=== PATIENT | female | born 1970 | race Caucasian/White ===

== ENCOUNTER 2017-01-24 06:16 | Day surgery (SDC) | payer OTHER ==
[~2017-01-24 06:16] MED LIST: ACETAMINOPHEN 325 MG TABLET PO PRN; DEXAMETHASONE SOD PHOSPHATE 10 MG/ML VIAL IV PRN; MORPHINE SULFATE 10 MG/ML SYRG IV PRN; MORPHINE SULFATE 2 MG/ML DISP.SYRIN IV PRN; MORPHINE SULFATE 4 MG/ML SYRG IV PRN; ONDANSETRON HCL/PF 2 MG/ML VIAL IV PRN; OXYMETAZOLINE HCL 150 SPRAY BTL NS PRN; RINGER'S SOLUTION,LACTATED 1,000 ML IV PRN; ceFAZolin SODIUM 1 GM in DEXTROSE 5 % IN WATER 100 ML IV PRN
[2017-01-24] MEDS ORDERED: RINGER'S SOLUTION,LACTATED 1,000 ML IV ONE (06:49)
[2017-01-24] MEDS ORDERED: OXYMETAZOLINE HCL 150 SPRAY BTL NS ONE (07:09)
[2017-01-24] MEDS ORDERED: LIDOCAINE HCL/EPINEPHRINE 50 ML VIAL IJ ONE ×2 (07:39)
[2017-01-24] MEDS ORDERED: COCAINE HCL 4 APPL BTL TP ONE ×2 (07:39)
[2017-01-24] MEDS ORDERED: MUPIROCIN 22 APPL TUBE TP ONE ×2 (07:40)
[2017-01-24] MEDS ORDERED: BACITRACIN 50,000 UNITS VIAL IR ONE (07:40)
[2017-01-24] MEDS ORDERED: oxyCODONE HCL/ACETAMINOPHEN 1 TAB TABLET PO PRN (09:26)
[2017-01-24] MEDS: oxyCODONE HCL/ACETAMINOPHEN 1 TAB TABLET PO PRN ×2 (09:35→10:14)
[2017-01-24 10:46] VITALS: BP 150/76
== END 2017-01-24 06:17 | disposition home or self-care (01) ==
LOC: AMB 06:16
PROVIDERS: ATTEND Allergy & Immunology
PROC: 09QS8ZZ Repair Right Frontal Sinus, Via Natural or Artificial Opening Endoscopic (ICD-10-PCS; 2017-01-24)
PROC: 099R8ZZ Drainage of Left Maxillary Sinus, Via Natural or Artificial Opening Endoscopic (ICD-10-PCS; 2017-01-24)
PROC: 099Q8ZZ Drainage of Right Maxillary Sinus, Via Natural or Artificial Opening Endoscopic (ICD-10-PCS; 2017-01-24)
PROC: 09QT8ZZ Repair Left Frontal Sinus, Via Natural or Artificial Opening Endoscopic (ICD-10-PCS; principal; 2017-01-24 07:00)
DX: J32.0 Chronic maxillary sinusitis (principal); J32.1 Chronic frontal sinusitis; I10 Essential (primary) hypertension; E11.9 Type 2 diabetes mellitus without complications; E07.9 Disorder of thyroid, unspecified; D64.9 Anemia, unspecified; Z68.36 Body mass index [BMI] 36.0-36.9, adult
CPT/HCPCS: 31267; 31276; J2405

== ENCOUNTER 2017-02-26 14:40 | Day surgery (SDC) | payer OTHER ==
--- NOTE | 2017-02-26 15:15 | OR ---
Anesthesia Pre Procedure Eval Date of Service: 02/26/17 Pre Procedure Evaluation: Last Vital Signs Temp 36.5 C 02/26/17 14:59 Pulse 86 02/26/17 14:59 Resp 16 02/26/17 14:59 BP 187/90 02/26/17 14:59 Pulse Ox 95 02/26/17 14:59 Anesthesia Pre Procedure Evaluation DATE: 02/26/2017 TIME: 1510 INDICATIONS: Disc bulge with stenosis, bilateral radiculopathy left greater than right PAST MEDICAL HISTORY: Ms. Reece has had a long history of low back and radicular pain. She is willing to with her body and is usually able to keep her pain today. She has had a history of L4 5 right lumbar laminectomy with discectomy with good relief. She has had 2 previous epidural injections, one prior to her surgery and one in 2015. She has had good relief with the injections in the past and has been doing well up until her recent months. In the past her pain is been predominantly on the right side at this time is much greater on the left which correlates with the disc issue that she has the L5-S1 level. History of GERD: No History of smoking: No History of sleep apnea: No EXAM: Heart regular; lungs clear ASSESSMENT OF MEDICAL STATUS: Appropriate candidate for epidural injection PLANNED PROCEDURE: Epidural steroid injection lumbar L5-S1 Home Medications: HOME MEDICATIONS Alpha Lipoic Acid 600 mg PO DAILY 11/18/15 [Last Taken Unknown] Blood Sugar Diagnostic, Drum [Accu-Chek Compact] 1 each MC QID 11/18/15 [Last Taken Unknown] Cholecalciferol (Vitamin D3) [Vitamin D3] 2,000 unit PO DAILY 11/18/15 [Last Taken Unknown] Dextrose [Glucose] 1 each PO PRN PRN 11/18/15 [Last Taken Unknown] Ibuprofen [Motrin] 200 mg PO Q4H PRN 11/18/15 [Last Taken Unknown] Insulin Lispro [Humalog] 22 unit SQ AC 11/18/15 [Last Taken 11/21/15 08:15] L.acidoph,Paracasei, B.lactis [Probiotic] 1 each PO DAILY 11/18/15 [Last Taken Unknown] Levothyroxine Sodium [Synthroid] 125 mcg PO DAILY 11/18/15 [Last Taken 11/21/15 06:50] Lisinopril [Zestril] 5 mg PO BID 11/18/15 [Last Taken 01/24/17 05:20] Lurasidone HCl [Latuda] 20 mg PO DAILY 11/18/15 [Last Taken Unknown] Methylcellulose [Fiber] 500 mg PO DAILY 11/18/15 [Last Taken Unknown] Multivitamins [Multivitamin Manny] 1 cap PO DAILY 11/18/15 [Last Taken Unknown] Cetirizine HCl [Zyrtec] 10 mg PO DAILY 01/17/17 [Last Taken Unknown] Cyanocobalamin (Vitamin B-12) [Vitamin B-12] 500 mcg PO DAILY 01/17/17 [Last Taken Unknown] Cyclosporine [Restasis] 1 each OP Q12H 01/17/17 [Last Taken Unknown] Insulin Detemir [Levemir] 40 units SC BID 01/17/17 [Last Taken Unknown] Meloxicam [Mobic] 7.5 mg PO DAILY 01/17/17 [Last Taken Unknown]
[2017-02-26] MEDS ORDERED: LIDOCAINE HCL/PF 5 ML VIAL IJ ONE (15:29)
[2017-02-26] MEDS ORDERED: DEXAMETHASONE SOD PHOSPHATE 10 MG/ML VIAL IJ ONE (15:29)
[2017-02-26] MEDS ORDERED: IOPAMIDOL 20 ML VIAL IJ ONE (15:30)
--- NOTE | 2017-02-26 15:32 | OR ---
Anesthesia Pre Procedure Eval Date of Service: 02/26/17 Home Medications: HOME MEDICATIONS Alpha Lipoic Acid 600 mg PO DAILY 11/18/15 [Last Taken Unknown] Blood Sugar Diagnostic, Drum [Accu-Chek Compact] 1 each MC QID 11/18/15 [Last Taken Unknown] Cholecalciferol (Vitamin D3) [Vitamin D3] 2,000 unit PO DAILY 11/18/15 [Last Taken Unknown] Dextrose [Glucose] 1 each PO PRN PRN 11/18/15 [Last Taken Unknown] Ibuprofen [Motrin] 200 mg PO Q4H PRN 11/18/15 [Last Taken Unknown] Insulin Lispro [Humalog] 22 unit SQ AC 11/18/15 [Last Taken 11/21/15 08:15] L.acidoph,Paracasei, B.lactis [Probiotic] 1 each PO DAILY 11/18/15 [Last Taken Unknown] Levothyroxine Sodium [Synthroid] 125 mcg PO DAILY 11/18/15 [Last Taken 11/21/15 06:50] Lisinopril [Zestril] 5 mg PO BID 11/18/15 [Last Taken 01/24/17 05:20] Lurasidone HCl [Latuda] 20 mg PO DAILY 11/18/15 [Last Taken Unknown] Methylcellulose [Fiber] 500 mg PO DAILY 11/18/15 [Last Taken Unknown] Multivitamins [Multivitamin Manny] 1 cap PO DAILY 11/18/15 [Last Taken Unknown] Cetirizine HCl [Zyrtec] 10 mg PO DAILY 01/17/17 [Last Taken Unknown] Cyanocobalamin (Vitamin B-12) [Vitamin B-12] 500 mcg PO DAILY 01/17/17 [Last Taken Unknown] Cyclosporine [Restasis] 1 each OP Q12H 01/17/17 [Last Taken Unknown] Insulin Detemir [Levemir] 40 units SC BID 01/17/17 [Last Taken Unknown] Meloxicam [Mobic] 7.5 mg PO DAILY 01/17/17 [Last Taken Unknown]
--- NOTE | 2017-02-26 15:48 | OR ---
Anesthesia Procedure Note - Anesthesia Procedure Note Date of Service: 02/26/17 Narrative: Vital Signs - Last Taken Temp 36.5 C 02/26/17 14:59 Pulse 82 02/26/17 15:30 Resp 18 02/26/17 15:30 BP 180/82 02/26/17 15:30 Pulse Ox 100 02/26/17 15:30 O2 Oxygen Delivery Method Room Air 02/26/17 15:40 ANESTHESIA PROCEDURE NOTE Date of Procedure: 02/26/2017 Time of procedure: 1529. Performed by: Terence Austin CRNA, [employer]SEMBLER, MSN Bucket Pusher: Hope Ricci RN. Preprocedure diagnosis: Disc bulge L5-S1 with left radicular pain. Post procedure diagnosis: Same. Procedure: Epidural Steroid Injection L5-S1 left. Indications: Left radicular pain. Findings: See below. Details of the procedure: After the MRI report and films were reviewed, the patient was interviewed where risks and the procedure were explained. The patient was then brought to or 3 and was placed in the prone position. The back was prepped with DuraPrep and draped in a sterile fashion. The lumbar area was identified under fluoroscopy and the L5-S1 left space was localized with 1% lidocaine solution. The epidural space was identified using loss of resistance technique using a #20-gauge Touhy needle. 1 mL of Isovue was injected while the C-arm was positioned in the lateral orientation. The C-arm was then readjusted to an AP view and Isovue 200 1 milliliters was injected demonstrating a spread at the affected area. Dexamethasone 10mg and lidocaine 1 % 5 mL was injected, stylette was replaced and the epidural needle removed. A Band-Aid was then applied to the injection site, patient was placed in a supine position for 5 minutes then returned to ASU with good relief of pain, from a 2-3 /10 to NEUROLOGICAL: Awake and alert. Cranial nerves II through XII intact. Motor and sensory grossly within normal limits. Five out of 5 muscle strength in all muscle groups. Normal speech. /10. EBL: None. Energy: 9.2 Seconds, 3.97 mGy Fluids: N/A. Specimen: N/A. Post procedure condition: The patient tolerated the procedure well. No complications were noted. Thank you for this consultation. Terence Austin CRNA, MSN, [employer]ER
[2017-02-26 16:17] VITALS: BP 143/82
== END 2017-02-26 14:41 | disposition home or self-care (01) ==
LOC: AMB 14:40
PROVIDERS: ATTEND Physician Assistant
PROC: 3E0R33Z Introduction of Anti-inflammatory into Spinal Canal, Percutaneous Approach (ICD-10-PCS; 2017-02-26)
PROC: B01BZZZ Fluoroscopy of Spinal Cord (ICD-10-PCS; 2017-02-26)
PROC: 3E0R3BZ Introduction of Anesthetic Agent into Spinal Canal, Percutaneous Approach (ICD-10-PCS; principal; 2017-02-26 13:30)
DX: M51.27 Other intervertebral disc displacement, lumbosacral region (principal)